=== PATIENT | male | born 1955 | race Caucasian/White ===

== ENCOUNTER → 2025-06-01 | Outpatient (CLI) | payer MEDICARE, OTHER, SELFPAY ==
--- NOTE | 2025-06-01 09:21 | XR_ITS ---
Examination: Abdomen sonogram, Limited Date and time of exam: June 01 thousand 25, 0927 hours INDICATIONS: Right upper abdominal pain beginning 2 weeks ago Technique: Real-time agarwal scale transabdominal sonographic images of the upper abdomen obtained. Findings: Normal gallbladder Normal common bile duct 0.5 cm Pancreatic head 1.5 cm Liver 17.6 cm multiple liver lesions, the largest in the left lobe of the liver 3.8 cm, 2.5 cm, right lobe liver largest lesion 3.3 cm Moderate right hydronephrosis, multiple abdominal lymph nodes IMPRESSION: Multiple liver lesions Aortic lymphadenopathy Moderate right hydronephrosis Recommend CT scan abdomen pelvis post intravenous contrast follow-up
== END | disposition home or self-care (01) ==
LOC: CDIM 09:14
PROVIDERS: PCP Family Medicine; Referring Provider Family Medicine; Visit Provider Family Medicine
DX: K76.9 Liver disease, unspecified (principal); R59.0 Localized enlarged lymph nodes; N13.30 Unspecified hydronephrosis
CPT/HCPCS: 76705

== ENCOUNTER → 2025-06-05 | Outpatient (CLI) | payer MEDICARE, OTHER, SELFPAY ==
--- NOTE | 2025-06-05 11:10 | XR_ITS ---
Examination: Retroperitoneal ultrasound, complete Technique: Multiple high resolution grayscale images of the retroperitoneum obtained, including kidneys and bladder. Exam date and time:June 05, 2025 1114 hours INDICATIONS: Renal insufficiency on laboratory examination this month, moderate right hydronephrosis on gallbladder sonogram 06/01/2025. FINDINGS: Right kidney 12.7 cm cortex 1.6 cm Mild to moderate hydronephrosis 13 mm calculus upper pole right kidney Left kidney 9.9 cm cortex 1.5 cm Moderate hydronephrosis Moderate renal scar formation No bladder mass or bladder calculi Prostatomegaly volume 61 cc no prostate nodules bladder wall is thickened posteriorly, difficult to measure IMPRESSION: Bilateral hydronephrosis as above Abnormal thickening of the posterior bladder wall Significant prostatomegaly Recommend CT scan abdomen pelvis without contrast follow-up
== END | disposition home or self-care (01) ==
PROVIDERS: PCP Family Medicine; Referring Provider Family Medicine; Visit Provider Family Medicine
DX: N13.30 Unspecified hydronephrosis (principal); N32.89 Other specified disorders of bladder; N40.0 Benign prostatic hyperplasia without lower urinary tract symptoms
CPT/HCPCS: 76770

== ENCOUNTER → 2025-06-07 | Outpatient (CLI) | payer MEDICARE, OTHER, SELFPAY ==
--- NOTE | 2025-06-07 10:01 | XR_ITS ---
Examination: CTA abdomen, with intravenous contrast. CTA pelvis, with intravenous contrast. 2-D sagittal and coronal reconstructions. 3-D reconstructions. Date and time of exam: June 07, 2025, 10:39 AM INDICATIONS: Abdominal pain and distention this week, liver disease diagnosis right upper abdominal pain one month CTDI vol (mgy) 29.3 DLP (MGycm) 1339 Technique: Multiple CTA images, 2.0 mm slice thickness, obtained, abdomen, pelvis, with the high-resolution 64 slice scanner. 100 cc Isovue-370 is administered intravenously. Sagittal and coronal 2-D reconstructions are obtained. 3-D reconstructions, angiographic images are obtained. 3-D postprocessing, including vascular maximum intensity projections. Low dose protocols were performed. One or more of the following dose reduction techniques were used; automated exposure control, adjustment of the mA and/or KV according to patient size, use of iterative reconstruction technique. Findings: No thoracic aortic aneurysmal dilatation Mild enlargement cardiac contour Multiple abnormal areas of radiodensity throughout the liver with weak enhancement of multiple liver lesions, the largest lesion in the right lobe 5.6 cm left lobe 4.2 cm Spleen is not enlarged No pancreatic or adrenal mass Severe scarring left kidney Mild to moderate bilateral hydronephrosis which is secondary to prominent periaortic pericaval and common iliac lymphadenopathy Lobular mass in the pelvis most likely markedly enlarged abnormal irregular contour prostate, AP dimension 5.7 cm Urinary bladder wall thickening especially on the left side up to 10 mm 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
== END | disposition home or self-care (01) ==
LOC: CDIM 09:54
PROVIDERS: PCP Internal Medicine Gastroenterology; Referring Provider Internal Medicine Gastroenterology; Visit Provider Internal Medicine Gastroenterology
DX: K76.89 Other specified diseases of liver (principal); R59.0 Localized enlarged lymph nodes; N40.0 Benign prostatic hyperplasia without lower urinary tract symptoms; C79.51 Secondary malignant neoplasm of bone
CPT/HCPCS: 74174; A4649; Q9967